=== PATIENT | female | born 1980 | race Two or more races ===

== ENCOUNTER 2020-04-05 19:22 | Emergency (ER) | payer SELFPAY ==
[2020-04-05] MEDS ORDERED: Cephalexin 500 MG Cap PO ONE (19:48)
--- NOTE | 2020-04-05 19:50 | EDM.PDOC ---
ED HPI GENERAL MEDICAL PROBLEM - General Chief Complaint: Laceration Stated Complaint: LEFT RING FINGER AT THE TOP CUT Time Seen by Provider: 04/05/20 20:03 Source of Information: Reports: Patient, RN History Limitations: Reports: No Limitations - History of Present Illness INITIAL COMMENTS - FREE TEXT/NARRATIVE: cut finger while slicing raw pork this am, had OTC "clotting " item, Cut has continued to bleed. Tetnus greater than 10 years. - Related Data Allergies Allergy/AdvReac Type Severity Reaction Status Date / Time No Known Allergies Allergy Verified 04/05/20 19:29 Home Meds: Home Meds . [No Known Home Meds] 04/05/20 [History] Social & Family History - Tobacco Use Tobacco Use Status *Q: Never Tobacco User - Recreational Drug Use Recreational Drug Use: No ED ROS GENERAL - Review of Systems Review Of Systems: Comprehensive ROS is negative, except as noted in HPI. ED EXAM, SKIN/RASH Exam: See Below Exam Limited By: No Limitations General Appearance: Alert, No Apparent Distress Eye Exam: Bilateral Eye: EOMI Ears: Normal External Exam Nose: Normal Inspection Throat/Mouth: Normal Inspection Head: Atraumatic, Normocephalic Neck: Normal Inspection Respiratory/Chest: No Respiratory Distress, Normal Breath Sounds Cardiovascular: Regular Rate, Rhythm Neurological: Alert, Oriented Skin: Warm, Other (small amount active bleeding distal 4th finger. vertical laceration 1.5 cm laceration palmar 4th finger. crusted dry glue substance lmajority of wound. No swelling. ) Location, Skin: Upper Extremity, Left Associated features: Tenderness Course - Vital Signs Last Recorded V/S: Last Vital Signs Temp 97.9 F 04/05/20 19:33 Pulse 65 04/05/20 19:33 Resp 16 04/05/20 19:33 BP 111/84 04/05/20 19:33 Pulse Ox 99 04/05/20 19:33 - Orders/Labs/Meds Meds: Medications Discontinued Medications Generic Name Dose Route Start Last Admin Trade Name Freq PRN Reason Stop Dose Admin Cephalexin 500 mg 04/05/20 19:48 04/05/20 19:56 Keflex PO 04/05/20 19:49 500 mg ONETIME ONE Administration Diphtheria/Tetanus/Acell Pertussis 0.5 ml 04/05/20 19:58 04/05/20 20:04 Boostrix IM 04/05/20 19:59 0.5 ml .ONCE ONE Administration - Re-Assessments/Exams Free Text/Narrative Re-Assessment/Exam: 04/06/20 02:30 Surgicel dressing to finger per RN, Bleeding controlled. Departure - Departure Time of Disposition: 20:05 Disposition: Home, Self-Care 01 Condition: Good Clinical Impression: Finger laceration Qualifiers: Encounter type: initial encounter Finger: ring finger Damage to nail status: without damage Foreign body presence: unspecified Laterality: right Qualified Code(s): S61.214A - Laceration without foreign body of right ring finger without damage to nail, initial encounter - Discharge Information *PRESCRIPTION DRUG MONITORING PROGRAM REVIEWED*: No *COPY OF PRESCRIPTION DRUG MONITORING REPORT IN PATIENT MANDO: No Instructions: Laceration Care, Adult, [id number] Referrals: PCP,None [Primary Care Provider] - Forms: ED Department Discharge Additional Instructions: Clinic recheck on Thursday, sooner if redness swelling or drainage elevate tylenol or ibuprofen , alternating every 4 hours as needed for discomfort keflex 500mg one three times daily for 10 days dressing change Thursday, - do not tug or pull at dressing, , warm water soak to end of finger to loosen dressing. Sepsis Event Note (ED) - Evaluation Sepsis Screening Result: No Definite Risk - Focused Exam Vital Signs: Vital Signs Temp Pulse Resp BP Pulse Ox 04/05/20 19:33 97.9 F 65 16 111/84 99
[2020-04-05] MEDS ORDERED: Diphtheria,Pertussis(Acell),Tetanus Vaccine 0.5 ML Syringe IM ONE (19:58)
== END 2020-04-05 20:22 | disposition home or self-care (01) ==
LOC: DL.ED 19:22
DX: S61.215A Laceration without foreign body of left ring finger without damage to nail, initial encounter (principal); Z23 Encounter for immunization; W26.8XXA Contact with other sharp object(s), not elsewhere classified, initial encounter
CPT/HCPCS: 90471; 90715; 99282; A9270; 99283